=== PATIENT | male | born 1970 | race Caucasian/White ===

== ENCOUNTER 2017-06-25 20:26 | Emergency (ER) | payer OTHER ==
[~2017-06-25] VITALS: Ht 190.5 cm; Wt 163.6 kg
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
[~2017-06-25 20:26] MED LIST: DEPO-TESTOT200 MG/ML IM; LEVOTHYROXINE175 MCG PO; NO MEDICATIONS; OMEPRAZOLE40 M1 PO; VITAMIN D50000 UNIT PO
[2017-06-25] MEDS ORDERED: VOLTAREN75 MG (20:33)
== END 2017-06-25 22:45 | disposition home or self-care (01) ==
LOC: SED 20:26
DX: S29.012A Strain of muscle and tendon of back wall of thorax, initial encounter (principal); S16.1XXA Strain of muscle, fascia and tendon at neck level, initial encounter; Z90.49 Acquired absence of other specified parts of digestive tract; V49.00XA Driver injured in collision with unspecified motor vehicles in nontraffic accident, initial encounter; Y92.410 Unspecified street and highway as the place of occurrence of the external cause
CPT/HCPCS: 72040; 72072; 72100; 73630; 96372; 99284; J2360